=== PATIENT | female | born 1940 | race Caucasian/White ===

== ENCOUNTER 2017-07-23 08:38 | Emergency (ER) | payer OTHER ==
[~2017-07-23] VITALS: Ht 157.5 cm; Wt 62.6 kg
[~2017-07-23 08:38] MED LIST: AMIODARONE HCL200 MG PO; ANTIVERT 25 MG25 MG PO; ATORVASTATIN CA40 MG PO; AUGMENTIN 875 M1 TAB PO; CENTRUM1 TA1 PO; COUMADIN 2.5 M2.5 MG PO; COUMADIN 5 MG TA5 MG PO; LEVOTHYROXINE0.05 M1 PO; LOSARTAN POTASS50 MG PO; MAGNESIUM OXID400 MG PO; MAGNESIUM500 M1 PO; OSCAL ULTRA 6001 TAB PO; OXYCODONE5 MG PO; STOOL SOFTENER100 MG PO; VERAPAMIL HCL120 M2 PO; VERAPAMIL HYDR240 MG PO; WALKER
--- NOTE | 2017-07-23 09:14 | ED AMS/SEIZURE/WEAK/DIZZY ---
History of Present Illness General Chief Complaint: General Adult Stated Complaint: PER SON, "HIGH BLOOD PRESSURE, FEELING DIZZY" Source: patient, family, old records Exam Limitations: no limitations Vital Signs & Intake/Output Vital Signs & Intake/Output Vital Signs Date Time Temp Pulse Resp B/P B/P Pulse O2 O2 Flow FiO2 Mean Ox Delivery Rate 07/23 1100 98.2 70 18 130/78 98 Room Air 07/23 0856 70 18 160/100 97 Room Air Allergies Coded Allergies: acetaminophen (From PERCOCET) (UNKNOWN 05/26/15) chlorzoxazone (SWELLING 05/26/15) oxycodone (From PERCOCET) (UNKNOWN 05/26/15) Reconcile Medications AMIODARONE HCL (Amiodarone HCl) 200 MG TABLET 200 MG PO DAILY AFIB (Reported) AMOXICILLIN/POTASSIUM CLAV (Augmentin 875-125 Tablet) 875 MG/125 MG TAB 1 TAB PO BID BRONCHITIS Atorvastatin Calcium (Lipitor) 40 MG TABLET 20 MG PO QPM HYPERLIPIDEMIA ( Reported) Pomerene/Ca/Cu/MG/Mn/Vit C/Vit (Oscal Ultra 600) 1 TAB TAB 1 TAB PO DAILY BONE HEALTH (Reported) Docusate Sodium (Stool Softener) 100 MG CAPSULE 1 CAP PO DAILY CONSTIPATION ( Reported) Levothyroxine Sodium 50 MCG TABLET 0.5 MG PO DAILY AC HYPOTHYROIDISM ( Reported) Losartan Potassium 50 MG TABLET 50 MG PO DAILY HTN (Reported) Magnesium Oxide 500 MG TABLET 1 TAB PO DAILY SUPPLEMENT (Reported) Meclizine (Meclizine HCl) 25 MG TABLET 1 TAB PO TID PRN DIZZINESS Meclizine HCl 25 MG TABLET 1 TAB PO TIDPRN PRN vertigo Multivitamins (Centrum) 1 TAB TAB 1 TAB PO DAILY VITAMIN SUPPLEMENT (Reported ) Oxycodone Hydrochloride (Oxycodone) 5 MG TAB 0.5 TAB PO 4 TIMES/DAY PRN PAIN TWELVE... [id number] Scopolamine (Transderm-Scop) 1 MG/3 DAY PATCH.TD.3 1 PAT TOP Q72 PRN vertigo VERAPAMIL HCL (Verapamil ER) 240 MG TABLET.ER 240 MG PO DAILY BP (Reported) VERAPAMIL HCL (Verapamil ER) 120 MG TABLET.ER 1 CAP PO QPM BP (Reported) Warfarin Sodium (Coumadin) 2.5 MG TABLET 1 TAB PO DAILY AFIB (Reported) 6 DAYS PER WEEK Warfarin Sodium (Coumadin) 5 MG TABLET 1 TAB PO DAILY AFIB (Reported) Core Measure Meds Pre-Hospital Eliquis Triage Note: PT TO ER C/C DIZZINESS AND WEAKNESS UPON WAKING THIS AM. DENIES C/P OR SOB. STATES BP 174/112 AT HOME, TOOK DAILY MEDS AFTER. BP NOW 160/100 R ARM MANUALLY Triage Nurses Notes Reviewed? yes Onset: Just prior to arrival Duration: hour(s):, better, constant, continues in ED Timing: recent history Injury Environment: home Severity: moderate No Modifying Factors: none LMP (ages 10-50): post menopausal : No Patient currently breastfeeds: No HPI: Prior to admission patient awoke with dizziness feeling unsteady and weak. She took her blood pressure and it was elevated 170/112. She reports having issues with sinus pressure from allergies. She denies fever chills nausea vomiting diarrhea abdominal pain chest pain shortness of breath headache dysuria rash bleeding change in bowel bladder habit. Past History Travel History Traveled to [place] past 21 day No Medical History Any Pertinent Medical History? see below for history Cardiovascular: AFIB, hypertension, hyperlipidemia Gastrointestinal: PANCREATIC TUMOR Endocrine: hypothyroidism Pneumonia Vaccine: 03/02/10 Influenza Vaccine: 12/11/11 Surgical History Surgical History: appendectomy, cholecystectomy, R OOPHRECTOMY SPLEEN REMOVED. Psychosocial History Who do you live with Patient/Self Services at Home None What is your primary language Luxembourgish Tobacco Use: Quit >30 days ago Family History Hx Contributory? No Review of Systems Review of Systems Constitutional: Reports: see HPI. EENTM: Reports: no symptoms. Respiratory: Reports: no symptoms. Cardiovascular: Reports: no symptoms. GI: Reports: no symptoms. Genitourinary: Reports: no symptoms. Musculoskeletal: Reports: no symptoms. Skin: Reports: no symptoms. Neurological/Psychological: Reports: no symptoms. Hematologic/Endocrine: Reports: no symptoms. Immunologic/Allergic: Reports: no symptoms. All Other Systems: Reviewed and Negative Physical Exam Physical Exam General Appearance: well developed/nourished, alert, awake, anxious, moderate distress Head: atraumatic, normal appearance Eyes: Bilateral: normal appearance, PERRL, EOMI, other (nystagmus). Ears, Nose, Throat: normal pharynx, normal ENT inspection Neck: normal inspection, supple, full range of motion, no midline tenderness Respiratory: normal breath sounds, chest non-tender, no respiratory distress, quiet respiration, lungs clear Cardiovascular: regular rate/rhythm, normal peripheral pulses, norml femoral pulses equa Peripheral Pulses: 4+ carotid (R), 4+ carotid (L) Gastrointestinal: normal bowel sounds, soft, non-tender, no organomegaly Back: normal inspection, normal range of motion Extremities: normal range of motion, no ligament instability Neurologic/Psych: no motor/sensory deficits, awake, alert, oriented x 3, normal gait Reflexes: 2+: bicep (R), bicep (L). Skin: intact, normal color, warm/dry Lymphatic: no anterior cervical lucius Core Measures ACS in differential dx? No CVA/TIA Diagnosis No Sepsis Present: No Sepsis Focused Exam Completed? No Progress Differential Diagnosis: benign positional vertigo, CVA/stroke, dehydration, electrolyte imbalance Plan of Care: Orders Procedure Date/time Status TROPONIN LEVEL 07/23 908 Complete PROTHROMBIN TIME 07/23 09 Complete COMPREHENSIVE METABOLIC PANEL 07/23 09 Complete CBC WITHOUT DIFFERENTIAL 07/23 908 Complete EKG 07/23 0839 Active Laboratory Tests 07/23/17 0923: Anion Gap 13, Estimated GFR > 60, BUN/Creatinine Ratio 33.8 H, Glucose 107 H, Calcium 9.9, Total Bilirubin 0.7, AST 25, ALT 27, Alkaline Phosphatase 98, Troponin I < 0.01, Total Protein 7.2, Albumin 4.2, Globulin 3.0, Albumin/ Globulin Ratio 1.4, PT 16.1 H, INR 1.47 H, CBC w Diff NO MAN DIFF REQ, RBC 4.85, MCV 96.1, MCH 31.6 H, MCHC 32.9 L, RDW 14.2, MPV 9.3, Gran % 81.2 H, Lymphocytes % 12.0 L, Monocytes % 6.0, Eosinophils % 0.5, Basophils % 0.3, Absolute Granulocytes 8.7 H, Absolute Lymphocytes 1.3, Absolute Monocytes 0.6, Absolute Eosinophils 0.1, Absolute Basophils 0 Diagnostic Imaging: Viewed by Me: CT Scan. Discussed w/RAD: CT Scan. Radiology Impression: 1. No acute intracranial pathology. 2. Findings suggestive of chronic, moderate small vessel ischemic changes of the supratentorial white matter and there is mild cerebral atrophy. Initial ED EKG: pacemaker rhythm, no ST T wave changes Prior EKG: changed Rhythm Strip: normal sinus rhythm Departure Departure Time of Disposition: 1058 Disposition: HOME OR SELF CARE Condition: Stable Clinical Impression Primary Impression: Vertigo Secondary Impressions: Hypertension Referrals: Jonnathan PERLA,Kelley (PCP/Family) Denise Ling MD Departure Forms: Customer Survey General Discharge Information Prescriptions: Current Visit Scripts Scopolamine (Transderm-Scop) 1 PAT TOP Q72 PRN vertigo #4 PAT Meclizine HCl 1 TAB PO TIDPRN PRN vertigo #30 TAB
[2017-07-23 09:34] LABS: ABSOLUTE BASOPHIL COUNT 0 /CUMM (0.0-0.2); ABSOLUTE EOSINOPHIL COUNT 0.1 /CUMM (0.0-0.7); ABSOLUTE GRANULOCYTE CT 8.7 /CUMM (1.4-6.5); ABSOLUTE LYMPH COUNT 1.3 /CUMM (1.2-3.4); ABSOLUTE MONOCYTE COUNT 0.6 /CUMM (0.10-0.60); BASOPHIL % 0.3 % (0.0-2.0); EOSINOPHIL % 0.5 % (0-5); GRANULOCYTE % 81.2 % (42.2-75.2); HEMATOCRIT 46.6 % (37-47); MEAN CORPUSCULAR HGB 31.6 PG (27.0-31.0); MEAN CORPUSCULAR HGB CONC 32.9 G/DL (33.0-37.0); MEAN CORPUSCULAR VOLUME 96.1 FL (81.0-99.0); MEAN PLATELET VOLUME 9.3 FL (7.4-10.4); PLATELET COUNT 311 /CUMM (130-400); RBC DISTRIBUTION WIDTH 14.2 % (11.5-14.5); RED BLOOD CELL CT 4.85 /CUMM (4.20-5.40); WHITE BLOOD CELL COUNT 10.8 /CUMM (4.8-10.8)
[2017-07-23 09:40] LABS: PT 16.1 SEC (9.4-12.5)
--- NOTE | 2017-07-23 10:09 | CT SCAN REPORT ---
EXAMINATION: CT HEAD WITHOUT CONTRAST CLINICAL INFORMATION: Dizziness, generalized weakness and nystagmus. COMPARISON: 02/18/2014 TECHNIQUE: Contiguous axial imaging was performed from the skull base to vertex without intravenous administration of contrast. DLP: 555 mGy-cm FINDINGS: Brain parenchyma: Chronic, patchy hypoattenuation is present within the supratentorial white matter. Butler-white matter differentiation is well preserved. No evidence of an acute major vascular territory infarction, hemorrhage, mass or midline shift. There appears to be an old, small focus of gyral calcification in the right frontal lobe there is atherosclerotic calcification of cavernous carotid arteries. Cerebrospinal fluid spaces: Mild atrophy of cerebral hemispheres associated with commensurate prominence of ventricles and sulci. No hydrocephalus or extra-axial fluid collections. Cerebellum and brainstem: Unremarkable. The 4th ventricle is midline in position. The cerebellopontine angles are normal. Calvarium and temporomandibular joints: Calvarium is intact. Mastoid air cells and middle ear cavities are well aerated. The TMJs are normal. There are old, small osteomas along the anterior surface of the right frontal bone. Paranasal sinuses and orbits: Mild mucosal thickening of the posterior left sphenoid sinus, improved compared to 02/18/2014. No acute intraorbital findings. IMPRESSION: 1. No acute intracranial pathology. 2. Findings suggestive of chronic, moderate small vessel ischemic changes of the supratentorial white matter and there is mild cerebral atrophy.
[2017-07-23 11:00] VITALS: BP 130/78
[2017-07-23] MEDS ORDERED: MECLIZINE HCL25 MG PO (11:00)
[2017-07-23] MEDS ORDERED: TRANSDERM-SCOP1 EAC1 TOP (11:00)
== END 2017-07-23 11:12 ==
LOC: ERH 08:38
PROVIDERS: Emergency Medicine
DX: R42 Dizziness and giddiness (principal); I10 Essential (primary) hypertension
CPT/HCPCS: 93005; 93010